=== PATIENT | female | born 1955 | race Caucasian/White ===

== ENCOUNTER 2021-03-30 13:45 | Outpatient (CLI) | payer OTHER, SELFPAY | END 2021-03-30 13:46 | disposition home or self-care (01) | LOC: CSHMAMMO 13:45 | PROVIDERS: ATTEND Physician Assistant | DX: Z12.31 Encounter for screening mammogram for malignant neoplasm of breast (principal); N63.20 Unspecified lump in the left breast, unspecified quadrant; Z91.89 Other specified personal risk factors, not elsewhere classified; Z80.3 Family history of malignant neoplasm of breast | CPT/HCPCS: 77063; 77067 ==

== ENCOUNTER 2021-05-02 13:12 | Outpatient (CLI) | payer OTHER | END 2021-05-02 13:13 | disposition home or self-care (01) | LOC: CSHULT 13:12 | PROVIDERS: ATTEND Family Medicine | DX: N63.21 Unspecified lump in the left breast, upper outer quadrant (principal); N60.02 Solitary cyst of left breast | CPT/HCPCS: G0279 ==